=== PATIENT | male | born 1960 | race African-American/Black ===

== ENCOUNTER 2018-02-08 07:47 | Emergency (ER) | payer MEDICARE, MEDICAID ==
[~2018-02-08] VITALS: Ht 175.3 cm; Wt 90.7 kg
[~2018-02-08 07:47] MED LIST: CITA20TA6 PO; LISI-334 PO; METF500T9 PO; NALT50TA PO; OMEP20CA9 PO
--- NOTE | 2018-02-08 08:59 | PHYS DOC ---
Past Medical History Past Medical History: Diabetes-Type II, Hypertension Past Surgical History: No Surgical History Alcohol Use: Heavy Drug Use: None Adult General Chief Complaint Chief Complaint: ALCOHOL INTOXICATION [facility] HPI Patient is a 57 year old male who presents with alcohol intoxication. Patient was found to be walking with an unsteady gait in the middle of a street. He did not fall or sustain injury. Patient endorses drinking alcohol all night. No acute complaints. Review of Systems Review of Systems Constitutional: Denies fever or chills Eyes: Denies change in visual acuity, redness HENT: Denies nasal congestion or sore throat Respiratory: Denies cough or shortness of breath Cardiovascular: No additional information not addressed in HPI GI: Denies abdominal pain, nausea, vomiting : Denies dysuria or hematuria Musculoskeletal: Denies back pain or joint pain Integument: Denies rash or skin lesions Neurologic: Denies headache All other systems were reviewed and found to be within normal limits, except as documented in this note. Allergies Allergies Allergies Coded Allergies Type Severity Reaction Last Updated Verified No Known Drug Allergies 11/17/14 No Physical Exam Physical Exam Constitutional: Well developed, well nourished, no acute distress, non-toxic appearance, smells of ETOH HENT: Normocephalic, atraumatic, bilateral external ears normal, oropharynx moist Eyes: PERRLA, EOMI, conjunctiva normal Neck: Normal range of motion, no tenderness Cardiovascular:Heart rate regular rhythm Lungs & Thorax: Bilateral breath sounds clear Abdomen: Bowel sounds normal, soft Skin: Warm, dry, no erythema, no rash Back: No tenderness, no CVA tenderness Extremities: No tenderness Neurologic: Alert and oriented X 3, slurred speech, Psychologic: calm, cooperative, intoxicated Current Patient Data Vital Signs Vital Signs Date Time Temp Pulse Resp B/P (MAP) Pulse Ox O2 Delivery O2 Flow Rate FiO2 02/08/18 08:26 97.9 85 17 118/89 (99) 96 Room Air 97.9 Lab Values Laboratory Tests Test 02/08/18 07:57 Glucose (Fingerstick) 158 mg/dL (70-99) H EKG EKG [] Radiology/Procedures Radiology/Procedures [] Course & Med Decision Making Course & Med Decision Making Pertinent Labs and Imaging studies reviewed. (See chart for details) Patient is seen and examined. No acute distress. Intoxicated. Plan is to observe until more sober. 09:00: Patient now more sober. Eating meal tray. Ambulates with steady gait. Patient is requesting discharge. Cab is arranged to drive the patient home. Ciara Disclaimer Ciara Disclaimer This electronic medical record was generated, in whole or in part, using a voice recognition dictation system. Departure Departure Referrals: NO PCP (PCP) GUERA LANG DO Feb 08, 2018 08:59
[2018-02-08 11:00] VITALS: BP 118/89
== END 2018-02-08 11:00 | disposition home or self-care (01) ==
LOC: ER 07:47
DX: F10.129 Alcohol abuse with intoxication, unspecified (principal); E11.9 Type 2 diabetes mellitus without complications; I10 Essential (primary) hypertension; Y90.9 Presence of alcohol in blood, level not specified
CPT/HCPCS: 82962; 99283

== ENCOUNTER 2018-08-26 13:23 | Emergency (ER) | payer MEDICARE, OTHER ==
[~2018-08-26] VITALS: Ht 175.3 cm; Wt 102.1 kg
[~2018-08-26 13:23] MED LIST changes: +OMEP20CA10 PO; -OMEP20CA9 PO
[2018-08-26] MEDS ORDERED: chlordiazePOXIDE HCL 25 MG CAPSULE PO ONE (14:00)
[2018-08-26 14:09] LABS: BASO % 0 % (0-3); EOS # 0.1 x10^3/uL (0.0-0.7); EOS % 1 % (0-3); HEMOGLOBIN 13.1 g/dL (13.0-17.5); LYMPH # 1.4 x10^3/uL (1.0-4.8); LYMPH % 26 % (24-48); MEAN CORPUSCULAR HEMOGLOBIN 31 pg (25-35); MEAN CORPUSCULAR HGB CONC 34 g/dL (31-37); MEAN CORPUSCULAR VOLUME 91 fL (79-100); MONO # 0.4 x10^3/uL (0.0-1.1); MONO % 8 % (0-9); NEUT # 3.7 x10^3uL (1.8-7.7); NEUT % 65 % (31-73); PLATELET COUNT 265 x10^3/uL (140-400); RED BLOOD COUNT 4.27 x10^6/uL (4.30-5.70); RED CELL DISTRIBUTION WIDTH 14.9 % (11.5-14.5); WHITE BLOOD COUNT 5.6 x10^3/uL (4.0-11.0)
[2018-08-26 14:09] LABS: BILIRUBIN,URINE NEGATIVE (NEG); CLARITY,URINE CLEAR; COLOR,URINE YELLOW; NITRITE,URINE NEGATIVE (NEG); PROTEIN,URINE NEGATIVE (NEG-TRACE); UROBILINOGEN,URINE 0.2 mg/dL (0.2 mg/dL)
[2018-08-26] MEDS ORDERED: MULTIVIT INFUSN,ADULT 4,VIT K 10 ML, THIAMINE INJ 100 MG, FOLIC ACID INJ 1 MG in IV NOR... IV ONE (14:15)
[2018-08-26 14:19] LABS: CALCIUM 8.5 mg/dL (8.5-10.1); CREATININE 0.9 mg/dL (0.7-1.3); GFR 105.2; POTASSIUM 4.1 mmol/L (3.5-5.1)
[2018-08-26 14:21] LABS: BARBITURATES NEG (NEG); BENZODIAZEPINES POS (NEG); CANNABINOIDS NEG (NEG); COCAINE NEG (NEG); METHADONE NEG (NEG); OPIATES NEG (NEG); PHENCYCLIDINE NEG (NEG)
[2018-08-26 14:24] LABS: ALBUMIN 3.5 g/dL (3.4-5.0); ALBUMIN/GLOBULIN RATIO 0.7 (1.0-1.7); TOTAL BILIRUBIN 0.3 mg/dL (0.2-1.0); TOTAL PROTEIN 8.3 g/dL (6.4-8.2)
[2018-08-26 14:26] LABS: AMPHETAMINE/METHAMPHETAMINE NEG (NEG)
[2018-08-26 14:33] LABS: BACTERIA,URINE 0 /HPF (0-FEW); RBC,URINE OCC /HPF (0-2); SQUAMOUS EPITHELIAL CELL,UR FEW /LPF
[2018-08-26] MEDS ORDERED: CHLO25CA9 PO (15:28)
--- NOTE | 2018-08-26 15:29 | PHYS DOC ---
Past Medical History Past Medical History: Alcoholism, Anxiety, Depression, Diabetes-Type II, Hypertension, Other Additional Past Medical Histor: Left eye blindness Past Surgical History: Appendectomy Additional Past Surgical Histo: Dental Alcohol Use: Heavy Drug Use: None Adult General Chief Complaint Chief Complaint: WITHDRAWL HPI HPI Patient is a 57 year old male who was brought here by EMS for alcohol intoxication. Patient went to [facility] to have alcohol detox however he was too drunk so they sent him here for medical clearance. HE denies suicidal ideation , denies homicidal ideation. Patient is feeling shaky. Patient denies any abdominal pain, no nausea vomiting. Patient denies any chest pain, no headache, no shortness of air. Review of Systems Review of Systems Constitutional: Denies fever or chills [] Eyes: Denies change in visual acuity, redness, or eye pain [] HENT: Denies nasal congestion or sore throat [] Respiratory: Denies cough or shortness of breath [] Cardiovascular: No additional information not addressed in HPI [] GI: Denies abdominal pain, nausea, vomiting, bloody stools or diarrhea [] : Denies dysuria or hematuria [] Musculoskeletal: Denies back pain or joint pain [] Integument: Denies rash or skin lesions [] Neurologic: Denies headache, focal weakness or sensory changes [] Endocrine: Denies polyuria or polydipsia PSYCH: POSITIVE FOR ANXIOUS, DENIED SUICIDAL IDEATION, DENIED HOMICIDAL IDEATION. All other systems were reviewed and found to be within normal limits, except as documented in this note. Current Medications Current Medications Current Medications Medications (Trade) Dose Ordered Sig/Leif Start Time Stop Time Status Last Admin Dose Admin Chlordiazepoxide (Librium) 50 mg 1X ONCE 08/26/18 14:00 08/26/18 14:01 DC 08/26/18 14:09 50 MG Lorazepam (Ativan) 2 mg 1X ONCE 08/26/18 13:45 08/26/18 13:47 DC 08/26/18 14:14 2 MG Multivitamins 10 ml/Thiamine HCl 100 mg/Folic Acid 1 mg/Sodium Chloride 1,011.2 ml @ 1,000.088 mls/hr 1X ONCE 08/26/18 14:15 08/26/18 15:15 DC 08/26/18 14:02 1,000.088 MLS/HR Allergies Allergies Allergies Coded Allergies Type Severity Reaction Last Updated Verified No Known Drug Allergies 11/17/14 No Physical Exam Physical Exam Constitutional: Well developed, well nourished, MILD Acute distress, non-toxic appearance. HENT: Normocephalic, atraumatic, bilateral external ears normal, oropharynx moist, no oral exudates, nose normal. [] Eyes: PERRLA, EOMI, conjunctiva normal, no discharge. [] Neck: Normal range of motion, no tenderness, supple, no stridor. [] Cardiovascular:SINUS TACHYCARDIA, regular rhythm, no murmur [] Lungs & Thorax: Bilateral breath sounds clear to auscultation [] Abdomen: Bowel sounds normal, soft, no tenderness, no masses, no pulsatile masses. [] Skin: Warm, dry, no erythema, no rash. [] Back: No tenderness, no CVA tenderness. [] Extremities: No tenderness, no cyanosis, no clubbing, ROM intact, no edema. [] Neurologic: Alert and oriented X 3, normal motor function, normal sensory function, no focal deficits noted. [] Psychologic: APPEARED VERY ANXIOUS, SHAKY, DENIED SUICIDAL IDEATION OR HOMICIDAL IDEATION. Current Patient Data Vital Signs Vital Signs Date Time Temp Pulse Resp B/P (MAP) Pulse Ox O2 Delivery O2 Flow Rate FiO2 08/26/18 15:10 104 20 135/72 (93) 95 Room Air 08/26/18 13:30 98.3 98.3 Lab Values Laboratory Tests Test 08/26/18 13:48 08/26/18 13:55 White Blood Count 5.6 x10^3/uL (4.0-11.0) Red Blood Count 4.27 x10^6/uL (4.30-5.70) L Hemoglobin 13.1 g/dL (13.0-17.5) Hematocrit 39.0 % (39.0-53.0) Mean Corpuscular Volume 91 fL (79-100) Mean Corpuscular Hemoglobin 31 pg (25-35) Mean Corpuscular Hemoglobin Concent 34 g/dL (31-37) Red Cell Distribution Width 14.9 % (11.5-14.5) H Platelet Count 265 x10^3/uL (140-400) Neutrophils (%) (Auto) 65 % (31-73) Lymphocytes (%) (Auto) 26 % (24-48) Monocytes (%) (Auto) 8 % (0-9) Eosinophils (%) (Auto) 1 % (0-3) Basophils (%) (Auto) 0 % (0-3) Neutrophils # (Auto) 3.7 x10^3uL (1.8-7.7) Lymphocytes # (Auto) 1.4 x10^3/uL (1.0-4.8) Monocytes # (Auto) 0.4 x10^3/uL (0.0-1.1) Eosinophils # (Auto) 0.1 x10^3/uL (0.0-0.7) Basophils # (Auto) 0.0 x10^3/uL (0.0-0.2) Sodium Level 143 mmol/L (136-145) Potassium Level 4.1 mmol/L (3.5-5.1) Chloride Level 104 mmol/L (98-107) Carbon Dioxide Level 24 mmol/L (21-32) Anion Gap 15 (6-14) H Blood Urea Nitrogen 16 mg/dL (8-26) Creatinine 0.9 mg/dL (0.7-1.3) Estimated GFR (Cockcroft-Gault) 105.2 BUN/Creatinine Ratio 18 (6-20) Glucose Level 284 mg/dL (70-99) H Calcium Level 8.5 mg/dL (8.5-10.1) Magnesium Level 2.0 mg/dL (1.8-2.4) Total Bilirubin 0.3 mg/dL (0.2-1.0) Aspartate Amino Transferase (AST) 39 U/L (15-37) H Alanine Aminotransferase (ALT) 48 U/L (16-63) Alkaline Phosphatase 147 U/L (46-116) H Total Protein 8.3 g/dL (6.4-8.2) H Albumin 3.5 g/dL (3.4-5.0) Albumin/Globulin Ratio 0.7 (1.0-1.7) L Ethyl Alcohol Level 161 mg/dL (0-10) H Urine Collection Type Void Urine Color Yellow Urine Clarity Clear Urine pH 5.0 Urine Specific [place] >=1.030 Urine Protein Negative mg/dL (NEG-TRACE) Urine Glucose (UA) >=1000 mg/dL (NEG) Urine Ketones (Stick) Negative mg/dL (NEG) Urine Blood Negative (NEG) Urine Nitrite Negative (NEG) Urine Bilirubin Negative (NEG) Urine Urobilinogen Dipstick 0.2 mg/dL (0.2 mg/dL) Urine Leukocyte Esterase Negative (NEG) Urine RBC Occ /HPF (0-2) Urine WBC 1-4 /HPF (0-4) Urine Squamous Epithelial Cells Few /LPF Urine Bacteria 0 /HPF (0-FEW) Urine Mucus Mod /LPF Urine Opiates Screen Neg (NEG) Urine Methadone Screen Neg (NEG) Urine Barbiturates Neg (NEG) Urine Phencyclidine Screen Neg (NEG) Urine Amphetamine/Methamphetamine Neg (NEG) Urine Benzodiazepines Screen Pos (NEG) Urine Cocaine Screen Neg (NEG) Urine Cannabinoids Screen Neg (NEG) Urine Ethyl Alcohol Pos (NEG) Laboratory Tests 08/26/18 13:48 Laboratory Tests 08/26/18 13:48 EKG EKG [] Radiology/Procedures Radiology/Procedures [] Course & Med Decision Making Course & Med Decision Making Pertinent Labs and Imaging studies reviewed. (See chart for details) Patient was given IV fluid, Ativan. Patient felt much better. Patient was discharged from the ER, he was TAKEN by taxi to [facility] for detox. Dragon Disclaimer Dragon Disclaimer This electronic medical record was generated, in whole or in part, using a voice recognition dictation system. Departure Departure Impression: Primary Impression: Alcohol intoxication Disposition: 01 HOME, SELF-CARE Condition: IMPROVED Referrals: NO PCP (PCP) FOLLOW UP WITH [facility] TODAY FOR TREATMENT Patient Instructions: Alcohol Problems, Alcohol Withdrawal Scripts Chlordiazepoxide Hcl (CHLORDIAZEPOXIDE HCL) 25 Mg Capsule 25 MG PO QID PRN for ALCOHOL WITHDRAWAL, #25 CAP Prov: JONH FLORES DO 08/26/18 JONH FLORES DO Aug 26, 2018 15:29
[2018-08-26 17:00] VITALS: BP 149/84
== END 2018-08-26 17:00 | disposition home or self-care (01) ==
LOC: ER 13:23
DX: F10.229 Alcohol dependence with intoxication, unspecified (principal); Y90.6 Blood alcohol level of 120-199 mg/100 ml; R00.0 Tachycardia, unspecified; E11.9 Type 2 diabetes mellitus without complications; I10 Essential (primary) hypertension; F41.9 Anxiety disorder, unspecified; F32.9 Major depressive disorder, single episode, unspecified
CPT/HCPCS: 36415; 80053; 80307; 81001; 83735; 85025; 96365; 96375; 99283; G0480; J2060; J7030

== ENCOUNTER 2019-03-20 18:50 | Inpatient (IN) | payer MEDICARE, OTHER ==
[~2019-03-20] VITALS: Ht 175.3 cm; Wt 103.0 kg
[~2019-03-20 18:50] MED LIST changes: +CHLO25CA9 PO; +METF500T11 PO; -METF500T9 PO
[2019-03-20 19:19] LABS: BILIRUBIN,URINE NEGATIVE (NEG); CLARITY,URINE CLEAR; COLOR,URINE YELLOW; NITRITE,URINE NEGATIVE (NEG); PH,URINE 5.5; PROTEIN,URINE NEGATIVE (NEG-TRACE); UROBILINOGEN,URINE 0.2 mg/dL (0.2 mg/dL)
[2019-03-20] MEDS ORDERED: MULTIVIT INFUSN,ADULT 4,VIT K 10 ML, THIAMINE INJ 100 MG, FOLIC ACID INJ 1 MG in IV NOR... IV ONE (19:30)
[2019-03-20 19:31] LABS: BACTERIA,URINE 0 /HPF (0-FEW); RBC,URINE 0 /HPF (0-2); SQUAMOUS EPITHELIAL CELL,UR OCC /LPF; WBC,URINE 0 /HPF (0-4)
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
[2019-03-20 21:04] LABS: BASO # 0.1 x10^3/uL (0.0-0.2); BASO % 2 % (0-3); EOS # 0.2 x10^3/uL (0.0-0.7); EOS % 3 % (0-3); HEMATOCRIT 34.9 % (39.0-53.0); HEMOGLOBIN 11.8 g/dL (13.0-17.5); LYMPH # 2.8 x10^3/uL (1.0-4.8); LYMPH % 36 % (24-48); MEAN CORPUSCULAR HEMOGLOBIN 31 pg (25-35); MEAN CORPUSCULAR HGB CONC 34 g/dL (31-37); MEAN CORPUSCULAR VOLUME 91 fL (79-100); MONO # 0.5 x10^3/uL (0.0-1.1); MONO % 7 % (0-9); NEUT % 52 % (31-73); PLATELET COUNT 229 x10^3/uL (140-400); RED BLOOD COUNT 3.86 x10^6/uL (4.30-5.70); RED CELL DISTRIBUTION WIDTH 16.7 % (11.5-14.5); WHITE BLOOD COUNT 7.6 x10^3/uL (4.0-11.0)
[2019-03-20 21:16] LABS: CALCIUM 9.1 mg/dL (8.5-10.1); GFR 92.9; POTASSIUM 3.8 mmol/L (3.5-5.1)
[2019-03-20 21:22] LABS: ALBUMIN 3.8 g/dL (3.4-5.0); DIRECT BILIRUBIN 0.1 mg/dL (0.0-0.2); MAGNESIUM 1.7 mg/dL (1.8-2.4); TOTAL BILIRUBIN 0.3 mg/dL (0.2-1.0); TOTAL PROTEIN 8.2 g/dL (6.4-8.2)
[2019-03-20 21:29] LABS: AMPHETAMINE/METHAMPHETAMINE NEG (NEG); BARBITURATES NEG (NEG); BENZODIAZEPINES NEG (NEG); CANNABINOIDS NEG (NEG); COCAINE NEG (NEG); METHADONE NEG (NEG); OPIATES NEG (NEG); PHENCYCLIDINE NEG (NEG)
[2019-03-20] MEDS ORDERED: ONDANSETRON PF 4 MG/2 ML VIAL. IV PRN (22:00)
[2019-03-21] VITALS (7 sets, daily range): BP systolic 136–176; BP diastolic 81–103
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
[2019-03-21] MEDS: LORazepam 1 MG TABLET PO SCH ×5 (00:23→21:13)
[2019-03-21] MEDS: MORPHINE SULFATE 2 MG/ML VIAL. IV PRN ×4 (00:23→15:16)
--- NOTE | 2019-03-21 01:00 | NUR ---
Pt. states he drinks 1/2 pint of wine, liquor per day and drinks even more during fridays because that is when he gets paid. He also states he is "afraid to go back home" to his girlfriend. He lives with her because he pays all her bills. 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
[2019-03-21] MEDS ORDERED: GABA600T7 PO (02:01)
[2019-03-21] MEDS ORDERED: ATOR10TA60 PO (02:01)
[2019-03-21 04:39] LABS: BASO % 0 % (0-3); EOS # 0.2 x10^3/uL (0.0-0.7); EOS % 4 % (0-3); HEMATOCRIT 31.4 % (39.0-53.0); HEMOGLOBIN 10.7 g/dL (13.0-17.5); LYMPH # 2.7 x10^3/uL (1.0-4.8); LYMPH % 41 % (24-48); MEAN CORPUSCULAR HEMOGLOBIN 31 pg (25-35); MEAN CORPUSCULAR HGB CONC 34 g/dL (31-37); MEAN CORPUSCULAR VOLUME 90 fL (79-100); MONO # 0.6 x10^3/uL (0.0-1.1); MONO % 9 % (0-9); NEUT % 46 % (31-73); PLATELET COUNT 206 x10^3/uL (140-400); RED BLOOD COUNT 3.48 x10^6/uL (4.30-5.70); RED CELL DISTRIBUTION WIDTH 16.8 % (11.5-14.5); WHITE BLOOD COUNT 6.6 x10^3/uL (4.0-11.0)
[2019-03-21 04:58] LABS: CALCIUM 8.9 mg/dL (8.5-10.1); CREATININE 0.9 mg/dL (0.7-1.3); GFR 104.9; POTASSIUM 3.9 mmol/L (3.5-5.1)
[2019-03-21] MEDS ORDERED: FLU VAX QS 2019-20 (36MOS+)/PF 0.5 ML SYRINGE. VAX IM ONE (09:00)
[2019-03-21] MEDS: MULTIVITAMIN with MINERAL TABLET. PO SCH (09:08)
[2019-03-21] MEDS: FOLIC ACID 1 MG TABLET. PO SCH (09:08)
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
[2019-03-21] MEDS: PANTOPRAZOLE 40 MG TABLET.DR. PO SCH (11:43)
[2019-03-21] MEDS: GABAPENTIN 300 MG CAPSULE. PO SCH ×3 (11:43→21:13)
[2019-03-21] MEDS: THIAMINE IM 200 MG/2 ML VIAL. IM SCH (11:43)
[2019-03-21] MEDS: CITALOPRAM 20 MG TABLET. PO SCH (11:44)
[2019-03-21] MEDS: ATORVASTATIN CALCIUM 10 MG TABLET. PO SCH (11:44)
[2019-03-21] MEDS: LISINOPRIL 20 MG TABLET PO SCH (11:44)
[2019-03-21] MEDS: metFORMIN XR 500 MG TAB.ER.24H PO SCH ×2 (11:44→17:49)
[2019-03-21] MEDS ORDERED: 0.9 % SODIUM CHLORIDE 10 ML DISP.SYRIN. IV PRN (14:45)
[2019-03-21] MEDS ORDERED: MAG HYDROX/ALUMINUM HYD/SIMETH 30 ML ORAL.SUSP PO PRN (14:45)
[2019-03-21] MEDS ORDERED: ACETAMINOPHEN 325 MG TABLET. PO PRN (14:45)
[2019-03-21] MEDS ORDERED: DOCUSATE SODIUM 100 MG CAPSULE. PO PRN (14:45)
[2019-03-21] MEDS ORDERED: HALOPERIDOL LACTATE 5 MG/ML VIAL. IVP PRN (14:45)
[2019-03-21] MEDS ORDERED: cloNIDine HCL 0.1 MG TABLET PO PRN ×2 (14:45)
[2019-03-21] MEDS ORDERED: ONDANSETRON PF 4 MG/2 ML VIAL. IV PRN (14:45)
[2019-03-21] MEDS ORDERED: LORazepam 1 MG TABLET PO PRN ×2 (14:45)
[2019-03-21] MEDS ORDERED: guaiFENesin ORAL 200 MG/10 ML LIQUID. PO PRN (14:45)
[2019-03-21] MEDS ORDERED: LORazepam 0.5 MG TABLET PO PRN (14:45)
[2019-03-21] MEDS: IPRATRPIUM/ALBUTEROL 0.5/2.5MG 3 ML NEBU. NEB SCH ×3 (15:58→23:28)
[2019-03-21] MEDS ORDERED: MULTIVIT INFUSN,ADULT 4,VIT K 10 ML, THIAMINE INJ 100 MG, FOLIC ACID INJ 1 MG in IV NOR... IV ONE (16:00)
[2019-03-21] MEDS: HYDROmorphone 2 MG/ML VIAL IV PRN (18:39)
[2019-03-22] MEDS: IPRATRPIUM/ALBUTEROL 0.5/2.5MG 3 ML NEBU. NEB SCH ×3 (03:12→11:17)
[2019-03-22 03:31] VITALS: BP 158/109
[2019-03-22] MEDS: HYDROmorphone 2 MG/ML VIAL IV PRN ×3 (04:30→21:00)
[2019-03-22] MEDS: LORazepam 1 MG TABLET PO SCH (04:33)
[2019-03-22 05:07] LABS: BASO % 0 % (0-3); EOS # 0.2 x10^3/uL (0.0-0.7); EOS % 5 % (0-3); HEMATOCRIT 31.2 % (39.0-53.0); HEMOGLOBIN 10.7 g/dL (13.0-17.5); LYMPH % 38 % (24-48); MEAN CORPUSCULAR HEMOGLOBIN 31 pg (25-35); MEAN CORPUSCULAR HGB CONC 34 g/dL (31-37); MEAN CORPUSCULAR VOLUME 90 fL (79-100); MONO # 0.5 x10^3/uL (0.0-1.1); MONO % 9 % (0-9); NEUT # 2.6 x10^3/uL (1.8-7.7); NEUT % 48 % (31-73); PLATELET COUNT 186 x10^3/uL (140-400); RED BLOOD COUNT 3.46 x10^6/uL (4.30-5.70); RED CELL DISTRIBUTION WIDTH 17.2 % (11.5-14.5); WHITE BLOOD COUNT 5.4 x10^3/uL (4.0-11.0)
[2019-03-22 05:28] LABS: ALBUMIN 3.2 g/dL (3.4-5.0); ALBUMIN/GLOBULIN RATIO 0.8 (1.0-1.7); CALCIUM 8.7 mg/dL (8.5-10.1); CREATININE 0.9 mg/dL (0.7-1.3); GFR 104.9; POTASSIUM 3.9 mmol/L (3.5-5.1); TOTAL BILIRUBIN 0.3 mg/dL (0.2-1.0)
[2019-03-22 07:40] VITALS: BP 159/100
[2019-03-22] MEDS: PANTOPRAZOLE 40 MG TABLET.DR. PO SCH ×2 (08:07→20:58)
[2019-03-22] MEDS: MULTIVITAMIN with MINERAL TABLET. PO SCH (08:07)
[2019-03-22] MEDS: ATORVASTATIN CALCIUM 10 MG TABLET. PO SCH (08:07)
[2019-03-22] MEDS: CITALOPRAM 20 MG TABLET. PO SCH (08:07)
[2019-03-22] MEDS: GABAPENTIN 300 MG CAPSULE. PO SCH ×3 (08:07→20:58)
[2019-03-22] MEDS: metFORMIN XR 500 MG TAB.ER.24H PO SCH ×2 (08:07→17:05)
[2019-03-22] MEDS: LISINOPRIL 20 MG TABLET PO SCH (08:08)
[2019-03-22] MEDS: FOLIC ACID 1 MG TABLET. PO SCH (08:08)
[2019-03-22] MEDS: THIAMINE IM 200 MG/2 ML VIAL. IM SCH (08:08)
[2019-03-22] MEDS: ENOXAPARIN 40 MG/0.4 ML SYRINGE. SQ SCH (08:09)
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
[2019-03-22] MEDS ORDERED: THIAMINE INJ 100 MG in IV DEXTROSE 5% 50 ML IV SCH (09:00)
[2019-03-22] MEDS ORDERED: MULTIVIT INFUSN,ADULT 4,VIT K 10 ML, THIAMINE INJ 100 MG, FOLIC ACID INJ 1 MG in IV NOR... IV SCH (09:00)
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
[2019-03-22] MEDS ORDERED: ALBUTEROL SULFATE 2.5 MG/3 ML NEBU. NEB PRN (11:30)
[2019-03-22 11:47] VITALS: BP 156/93
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
[2019-03-22 15:23] VITALS: BP 151/88
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
[2019-03-22 19:37] VITALS: BP 164/93
[2019-03-22] MEDS ORDERED: CALCIUM CARBONATE 500 MG TAB.CHEW PO PRN (20:15)
[2019-03-22] MEDS ORDERED: hydrALAZINE 20 MG/ML VIAL. IVP PRN (20:15)
[2019-03-22 23:45] VITALS: BP 171/94
[2019-03-23 03:27] VITALS: BP 158/100
[2019-03-23 07:00] VITALS: BP 159/99
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
[2019-03-23] MEDS ORDERED: CALCIUM CARBONATE 500 MG TAB.CHEW PO PRN (09:45)
[2019-03-23] MEDS: FOLIC ACID 1 MG TABLET. PO SCH (10:08)
[2019-03-23] MEDS: metFORMIN XR 500 MG TAB.ER.24H PO SCH (10:08)
[2019-03-23] MEDS: GABAPENTIN 300 MG CAPSULE. PO SCH ×2 (10:08→15:31)
[2019-03-23] MEDS: MULTIVITAMIN with MINERAL TABLET. PO SCH (10:08)
[2019-03-23] MEDS: CITALOPRAM 20 MG TABLET. PO SCH (10:08)
[2019-03-23] MEDS: ATORVASTATIN CALCIUM 10 MG TABLET. PO SCH (10:08)
[2019-03-23] MEDS: LISINOPRIL 20 MG TABLET PO SCH (10:09)
[2019-03-23] MEDS: ENOXAPARIN 40 MG/0.4 ML SYRINGE. SQ SCH (10:09)
[2019-03-23] MEDS: THIAMINE IM 200 MG/2 ML VIAL. IM SCH (10:10)
[2019-03-23 11:00] VITALS: BP 156/89
[2019-03-23] MEDS ORDERED: HYDROcodone/APAP 5/325MG 1 TAB TABLET PO PRN (12:00)
[2019-03-23 15:00] VITALS: BP 145/110
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
--- NOTE | 2019-03-23 19:22 | DISCH ---
DISCHARGE INSTRUCTIONS Condition on Discharge Condition on Discharge: Stable Activity After Discharge Activity Instructions for Disc: Activity as tolerated Lifting Instructions after Dis: No heavy lifting, No pulling or pushing Driving Instructions after Dis: Do not drive Diet after Discharge Diet after Discharge: Regular Liquid Texture: Thin Liquid Wound Incision Care Wound/Incision Care: Ice to area for comfort Checks after Discharge Checks after discharge: Check blood press - daily Contacting the DR. after DC Call your doctor for: If your condition worsens Treatment/Equipment after DC Adaptive Equipment Issued: Walker Warfarin Follow-Up Warfarin Follow UP: see pcp this week, attend AA DAILY PETROS FLORENCE MD Mar 23, 2019 19:21
[2019-03-24] MEDS ORDERED: THIAMINE 100 MG TABLET. PO SCH (09:00)
[2019-03-27] MEDS ORDERED: MULTIVITAMIN with MINERAL TABLET. PO SCH (09:00)
[2019-03-27] MEDS ORDERED: FOLIC ACID 1 MG TABLET. PO SCH (09:00)
== END 2019-03-23 17:05 | disposition home or self-care (01) | DRG 682 ==
LOC: ER 18:50 → 6 SOUTH 22:08
PROVIDERS: ADMIT Internal Medicine; ATTEND Internal Medicine
DX: N17.9 Acute kidney failure, unspecified (principal); G92 Toxic encephalopathy; M84.421A Pathological fracture, right humerus, initial encounter for fracture; E87.0 Hyperosmolality and hypernatremia; F10.229 Alcohol dependence with intoxication, unspecified; E66.01 Morbid (severe) obesity due to excess calories; F41.9 Anxiety disorder, unspecified; J45.909 Unspecified asthma, uncomplicated; E11.42 Type 2 diabetes mellitus with diabetic polyneuropathy; E86.9 Volume depletion, unspecified; F17.210 Nicotine dependence, cigarettes, uncomplicated; D64.9 Anemia, unspecified; K21.9 Gastro-esophageal reflux disease without esophagitis; E78.5 Hyperlipidemia, unspecified; F32.9 Major depressive disorder, single episode, unspecified; I10 Essential (primary) hypertension; H54.62 Unqualified visual loss, left eye, normal vision right eye; Z68.33 Body mass index [BMI] 33.0-33.9, adult; Y08.02XA Assault by strike by baseball bat, initial encounter; Y93.89 Activity, other specified; Y92.89 Other specified places as the place of occurrence of the external cause; Y99.8 Other external cause status; Z90.49 Acquired absence of other specified parts of digestive tract; Z82.49 Family history of ischemic heart disease and other diseases of the circulatory system
CPT/HCPCS: 36415; 73060; 73590; 80048; 80053; 80076; 80307; 81001; 82550; 82962; 83540; 83550; 83735; 85025; 90471; 90686; 94640; 94760; 96365; G0480; J1170; J1650; J2270; J2405; J7030; J7620; 97110; 97530; 99285-25; G0378